=== PATIENT | male | born 1955 | race Caucasian/White ===

== ENCOUNTER → 2018-05-26 | Outpatient (CLI) | payer BC ==
--- NOTE | 2018-05-26 14:53 | RADIOLOGY REPORT (SQ) ---
EXAM DESCRIPTION: NM 3 PHASE BONE SCAN COMPLETED DATE/TIME: 05/26/2018 1:56 pm REASON FOR STUDY: M25.551 PAIN IN RIGHT HIP/M25.552 PAIN IN LEFT HIP M25.551 PAIN IN RIGHT HIP M25. 552 PAIN IN LEFT HIP COMPARISON: 05/06/2018 bilateral hips RADIONUCLIDE AND DOSE: 20 millicuries Tc99m HDP. The route of agent administration: Intravenous. ADDITIONAL DRUGS AND DOSES: None. TECHNIQUE: Following injection of the radiopharmaceutical, serial blood flow images acquired. Equil ibrium blood pool images then acquired. Routine delayed images at 3 hours acquired of the areas of c linical concern with additional focused images as needed. AREA OF INTEREST: Right hip LIMITATIONS: None. FINDINGS: VASCULAR FLOW IMAGES: Flow is synchronous and symmetrical to the hips. BLOOD POOL IMAGES: No asymmetry or focal areas of soft-tissue hyper-perfusion. BONES: There is photopenia in the hips. The patient has bilateral hip arthroplasties. There is no a bnormal uptake in the proximal femurs. There is no abnormal uptake in the acetabula. KIDNEYS: Kidneys not imaged. OTHER: No other significant finding. IMPRESSION: Normal three-phase bone scan. There is no evidence of loosening or infection. COMMENT: Quality measure 147: Current bone scan is compared with any available plain radiographs, p rior bone scans, and CT/MRI. TECHNICAL DOCUMENTATION: JOB ID: [id number] [employer]- All Rights Reserved Reading location - IP/workstation name: [email or web address]
== END ==
LOC: RAD 10:41
PROVIDERS: ATTEND Physician Assistant
DX: M25.551 Pain in right hip (principal); M25.552 Pain in left hip
CPT/HCPCS: 78315; A9561